=== PATIENT | female | born 1970 ===

== ENCOUNTER 2017-01-16 08:13 | Emergency (ER) | payer OTHER ==
[2017-01-16 08:21] VITALS: BP 139/76; PULSE 75; RESP 20; TEMP 98.3; O2SAT 98
--- NOTE | 2017-01-16 09:01 | C.PDOC ---
History Of Present Illness 46 year old female presents to ED for evaluation of left breast pain and upper back pain for the last 1 month. Patient states that she felt a lump on her breast for the past 1year. Patient reports being seen by a physician in [place], had mammogram done there which showed left breast cyst and lymph node in the axilla. She has not tried any OTC pain medications. Patient denies cough, fever/chills, SOB, chest pain, rashes, falls/injuries. Time Seen by Provider: 01/16/17 08:16 Chief Complaint (Nursing): Abnormal Skin Integrity History Per: Patient History/Exam Limitations: no limitations Onset/Duration Of Symptoms: Persistent Current Symptoms Are (Timing): Still Present Location Of Injury: Left: Chest, Anterior: Chest Quality Of Symptoms: Painful. denies: Itching, Draining Severity: Mild Additional History Per: Patient Past Medical History Reviewed: Historical Data, Nursing Documentation, Vital Signs Vital Signs: Last Vital Signs Temp 98.3 F 01/16/17 08:17 Pulse 75 01/16/17 08:17 Resp 20 01/16/17 08:17 BP 139/76 01/16/17 08:17 Pulse Ox 98 01/16/17 10:08 - Medical History PMH: Bronchitis Family History: States: No Known Family Hx - Social History Hx Alcohol Use: No Hx Substance Use: No - Immunization History Hx Tetanus Toxoid Vaccination: No Hx Influenza Vaccination: No Hx Pneumococcal Vaccination: Yes (15 days ago) Review Of Systems Except As Marked, All Systems Reviewed And Found Negative. Constitutional: Negative for: Fever, Chills Cardiovascular: Positive for: Other (left breast pain). Negative for: Chest Pain, Palpitations Respiratory: Negative for: Cough, Shortness of Breath Gastrointestinal: Negative for: Nausea, Vomiting Musculoskeletal: Positive for: Back Pain (upper). Negative for: Neck Pain Skin: Negative for: Rash Neurological: Negative for: Weakness, Numbness Physical Exam - Physical Exam Appears: Well, Non-toxic, No Acute Distress, Other (obese) Skin: Warm, Dry, No Rash (no rashes on chest/back ) Eye(s): bilateral: Normal Inspection Oral Mucosa: Moist Neck: Supple Lymphatic: Adenopathy (left axillary node ) Chest: Symmetrical, No Deformity, No Tenderness, No Ecchymosis, No Subcutaneous Emphysema, No Other (no palpable mass in the left breast, no erythema, no nipple discharge) Cardiovascular: Rhythm Regular Respiratory: Normal Breath Sounds, No Rales, No Rhonchi, No Wheezing Gastrointestinal/Abdominal: Normal Exam, Bowel Sounds, Soft, No Tenderness Back: No CVA Tenderness, No Vertebral Tenderness, No Paraspinal Tenderness Extremity: Normal ROM, No Deformity Neurological/Psych: Oriented x3 ED Course And Treatment O2 Sat by Pulse Oximetry: 98 (on RA) Pulse Ox Interpretation: Normal - Radiology CXR: Interpreted by Me, Viewed By Me CXR Interpretation: Yes: No Acute Disease. No: Infiltrates, Fracture Progress Note: Patient given PO tylenol, and CXR ordered and reviewed. Reevaluation Time: 09:00 Reassessment Condition: Improved (On reassessment, patient is resting comfortably and states her pain has improved. CXR unremarabkable, and patient has already had mammogram done [place] that showed left breast cyst/axillary LN. Patient given Rx for tylenol and instructed to follow up with medical clinic in 1-2 days. She understands she should return to ED if symptoms worsen.) Disposition Counseled Patient/Family Regarding: Studies Performed, Diagnosis, Need For Followup, Rx Given - Disposition Referrals: [facility] [Outside] Disposition: HOME/ ROUTINE Disposition Time: 09:00 Condition: STABLE Additional Instructions: SEGUIMIENTO EN LA CLNICA EN 1-2 TERAN USE MEDICAMENTOS PARA EL DOLOR AMPARO SEA NECESARIO DEVUELVA A LA MIGNON DE EMERGENCIA SI LOS SNTOMAS EMPEORARAN Prescriptions: Acetaminophen [Tylenol 325mg tab] 650 mg PO Q6 PRN #30 tab PRN Reason: pain/fever Forms: [facility] (Romanian), General Discharge Instructions Print Language: SERBIAN - POA Present On Arrival: None - Clinical Impression Clinical Impression: Breast pain, left - Scribe Statement The provider has reviewed the documentation as recorded by the Jannyibwillem Bauer All medical record entries made by the Scribe were at my direction and personally dictated by me. I have reviewed the chart and agree that the record accurately reflects my personal performance of the history, physical exam, medical decision making, and the department course for this patient. I have also personally directed, reviewed, and agree with the discharge instructions and disposition.
--- NOTE | 2017-01-16 09:02 | RAD ---
HISTORY: left breast pain, left upper back pain COMPARISON: No prior. TECHNIQUE: Chest PA and lateral FINDINGS: LUNGS: No active pulmonary disease. PLEURA: No significant pleural effusion identified. No pneumothorax apparent. CARDIOVASCULAR: Normal. OSSEOUS STRUCTURES: No significant abnormalities. VISUALIZED UPPER ABDOMEN: Normal. OTHER FINDINGS: None. IMPRESSION: No active disease.
== END 2017-01-16 09:11 | disposition home or self-care (01) ==
LOC: C.ER 08:13
DX: N64.4 Mastodynia (principal)

== ENCOUNTER 2017-02-05 19:14 | Emergency (ER) | payer SELFPAY ==
[2017-02-05 19:32] VITALS: RESP 18
[2017-02-05] MEDS ORDERED: Sodium Chloride 0.9% 500 ML IV ONE ×2 (19:54→20:13)
[2017-02-05] MEDS ORDERED: Aluminum Hydroxide/Magnesium Hydroxide Susp (30 mL) PO STA (19:54)
--- NOTE | 2017-02-05 19:57 | C.PDOC ---
History Of Present Illness 46 year old female with a Hx of gastric ulcers and gastritis who presents to the ER with a complaint of nonradiating epigastric pain since 00:00 last night, associated with multiple episodes of vomiting. Patient reports she ate a plantain and a pear approximately 3 hours prior to onset. Patient denies Hx of similar pain, diarrhea, fever, or dysuria. 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 denies: Fever, Chills, Diarrhea, Urinary Symptoms Exacerbating Factors: None Alleviating Factors: None Recent travel outside of the [place]: No Abnormal Vaginal Bleeding: No Past Medical History Reviewed: Historical Data, Nursing Documentation, Vital Signs Vital Signs: Last Vital Signs Temp 97.2 F L 02/05/17 21:21 Pulse 65 02/05/17 21:21 Resp 18 02/05/17 21:21 BP 134/82 02/05/17 21:21 Pulse Ox 99 02/05/17 21:21 - Medical History PMH: Bronchitis Surgical History: Endoscopy Family History: States: Unknown Family Hx - Social History Hx Alcohol Use: No Hx Substance Use: No - Immunization History Hx Tetanus Toxoid Vaccination: No Hx Influenza Vaccination: No Hx Pneumococcal Vaccination: Yes (15 days ago) Review Of Systems Constitutional: Negative for: Fever, Chills Gastrointestinal: Positive for: Vomiting, Abdominal Pain. Negative for: Diarrhea Genitourinary: Negative for: Dysuria Physical Exam - Physical Exam Appears: Non-toxic, No Acute Distress Skin: Normal Color, Warm, Dry Head: Atraumatic, Normacephalic Eye(s): bilateral: Normal Inspection, EOMI Oral Mucosa: Moist Neck: Normal, Supple Chest: Symmetrical, No Tenderness Cardiovascular: Rhythm Regular (S1/S2 within normal limits) Respiratory: Normal Breath Sounds, No Rales, No Rhonchi, No Wheezing Gastrointestinal/Abdominal: Soft, No Tenderness, Distention (Mildly) Neurological/Psych: Oriented x3, Normal Speech, Normal Cognition ED Course And Treatment - Laboratory Results Result Diagrams: 02/05/17 20:01 10/24/17 20:01 O2 Sat by Pulse Oximetry: 100 (Room air) Pulse Ox Interpretation: Normal Medical Decision Making Medical Decision Making: Impression: Gastritis vs GERD vs Biliary Colic Plan: * Maalox * Pepcid * Viscous lidocaine * Zofran * IV fluids * Blood work * Urinalysis Disposition - Disposition Referrals: [facility] [Outside] Disposition: HOME/ ROUTINE Disposition Time: 21:05 Condition: FAIR Additional Instructions: take famotidine as prescribed Prescriptions: Famotidine [Pepcid] 40 mg PO DAILY #14 tablet Forms: [employer] (British), Work Excuse - Clinical Impression Clinical Impression: Epigastric abdominal pain - Scribe Statement The provider has reviewed the documentation as recorded by the Scribe Kurtis Morgan All medical record entries made by the Scribe were at my direction and personally dictated by me. I have reviewed the chart and agree that the record accurately reflects my personal performance of the history, physical exam, medical decision making, and the department course for this patient. I have also personally directed, reviewed, and agree with the discharge instructions and disposition.
[2017-02-05] MEDS ORDERED: Aluminum Hydroxide/Magnesium Hydroxide Susp (30 mL) ONE (20:02)
[2017-02-05] MEDS ORDERED: Sodium Chloride 0.9% 0 ML ONE (20:02)
[2017-02-05 20:04] LABS: BASO # 0.1 K/uL (0.0-0.2); MONO # 0.4 K/uL (0.0-0.8)
[2017-02-05 20:06] LABS: EOS % 0.1 % (0.0-4.0); HEMATOCRIT 44.1 % (34.0-47.0); LYMPH # 1.8 K/uL (1.0-4.3); LYMPH % 19.6 % (20.0-40.0); MEAN CELL VOLUME 89.3 fL (81.0-99.0); MEAN CORPUSCULAR HEMOGLOBIN 30.4 pg (27.0-31.0); MEAN PLATELET VOLUME 9.7 fL (7.2-11.7); MONO % 4.1 % (0.0-10.0); NRBC % 0.1 % (0.0-2.0); RED CELL DISTRIBUTION WIDTH 13.7 % (11.5-14.5); WHITE BLOOD COUNT 9.1 K/uL (4.8-10.8)
[2017-02-05 20:16] LABS: CHLORIDE 98 mmol/L (98-107)
[2017-02-05 20:17] LABS: POTASSIUM 4.1 mmol/L (3.6-5.2); SODIUM 135 mmol/L (132-148)
[2017-02-05 20:19] LABS: BILIRUBIN,TOTAL 0.7 mg/dL (0.2-1.3); GFR AFRICAN-AMERICAN > 60
[2017-02-05 20:20] LABS: ALB/GLOB RATIO 1.5 (1.0-2.1); ALKALINE PHOSPHATASE 70 U/L (38-126); ALT/SGPT 66 U/L (9-52); AST/SGOT 37 U/L (14-36); BLOOD UREA NITROGEN 11 mg/dL (7-17); CALCIUM 10.1 mg/dl (8.6-10.4); CARBON DIOXIDE 24 mmol/L (22-30); GLUCOSE,RANDOM 108 mg/dL (65-105); TOTAL PROTEIN 7.8 g/dL (6.3-8.3)
[2017-02-05 21:23] VITALS: BP 134/82; PULSE 65; TEMP 97.2
[2017-02-05 22:26] VITALS: O2SAT 100
== END 2017-02-05 21:22 | disposition home or self-care (01) ==
LOC: C.ER 19:14
DX: R10.13 Epigastric pain (principal)
CPT/HCPCS: 80053; 83690; 85025; 96374; 96375; 99284; J2405; J7040

== ENCOUNTER 2018-07-03 08:09 | Emergency (ER) | payer OTHER, SELFPAY ==
[2018-07-03 09:16] LABS: HCG,QUALITATIVE URINE NEGATIVE (NEGATIVE)
[2018-07-03 09:19] LABS: SQUAMOUS EPITHIAL 4 /hpf (0-5); URINE BACTERIA RARE (<OCC); URINE BILIRUBIN NEGATIVE (NEGATIVE); URINE BLOOD NEGATIVE (NEGATIVE); URINE CLARITY Clear (Clear); URINE COLOR Yellow (YELLOW); URINE GLUCOSE (UA) NORMAL (Normal); URINE LEUKOCYTE ESTERASE NEG Leu/uL (Negative); URINE PROTEIN NEGATIVE (NEGATIVE); URINE UROBILINOGEN NORMAL mg/dL (0.2-1.0)
[2018-07-03] MEDS ORDERED: Sodium Chloride 0.9% 1,000 ML IV STA (10:35)
[2018-07-03 10:53] LABS: BASO % 0.6 % (0.0-2.0); EOS # 0.1 K/uL (0.0-0.7); EOS % 2.9 % (0.0-4.0); HEMOGLOBIN 13.2 g/dL (11.0-16.0); LYMPH # 1.6 K/uL (1.0-4.3); LYMPH % 36.6 % (20.0-40.0); MEAN CELL VOLUME 91.7 fL (81.0-99.0); MEAN CORPUSCULAR HEMOGLOBIN 30.4 pg (27.0-31.0); MEAN CORPUSCULAR HGB CONC 33.1 g/dL (33.0-37.0); MEAN PLATELET VOLUME 9.9 fL (7.2-11.7); MONO # 0.3 K/uL (0.0-0.8); NEUT # 2.3 K/uL (1.8-7.0); NEUT % 52.9 % (50.0-75.0); NRBC % 0.1 % (0.0-2.0); RBC 4.36 Mil/uL (3.80-5.20); RED CELL DISTRIBUTION WIDTH 12.9 % (11.5-14.5); WHITE BLOOD COUNT 4.4 K/uL (4.8-10.8)
[2018-07-03 11:06] LABS: ALB/GLOB RATIO 1.5 (1.0-2.1); ALBUMIN 4.3 g/dL (3.5-5.0); ALT/SGPT 14 U/L (9-52); AST/SGOT 25 U/L (14-36); BLOOD UREA NITROGEN 15 mg/dL (7-17); CALCIUM 9.4 mg/dl (8.6-10.4); GFR NON-AFRICAN AMERICAN > 60; LIPASE 81 U/L (23-300)
[2018-07-03] MEDS ORDERED: Sodium Chloride 0.9% 1,000 ML ONE (11:09)
--- NOTE | 2018-07-03 11:51 | US ---
Date of service: 07/03/2018 HISTORY: RUQ and epigastric abd pain COMPARISON: None. TECHNIQUE: Sonographic evaluation of the right upper quadrant of the abdomen. FINDINGS: LIVER: Measures 18.2 cm in length. Diffusely increased echogenicity of the liver parenchyma. Consistent with fatty infiltration. Smooth contour. No mass. No biliary ductal dilatation. Normal hepatopetal portal venous flow. GALLBLADDER: Unremarkable. No gallstones. COMMON BILE DUCT: Measures 2 mm. No stones. No dilatation. PANCREAS: Unremarkable as visualized. No mass. No ductal dilatation. RIGHT KIDNEY: Measures 11.3 cm in length. Normal echogenicity. No calculus, mass, or hydronephrosis. AORTA: No aneurysmal dilatation. IVC: Unremarkable. OTHER FINDINGS: None . IMPRESSION: Fatty liver. No evidence of cholelithiasis or cholecystitis.
--- NOTE | 2018-07-03 14:47 | C.PDOC ---
History Of Present Illness 48 year old female presents to the ED with daughter for evaluation of epigastric abdominal pain which began this morning. As per daughter, patient has a history of gastritis and her pain began after eating "rough" this morning. Patient denies fever, chills, nausea, vomiting, diarrhea. Time Seen by Provider: 07/03/18 08:20 Chief Complaint (Nursing): Abdominal Pain History Per: Patient, Family History/Exam Limitations: no limitations Onset/Duration Of Symptoms: Hrs Current Symptoms Are (Timing): Still Present Location Of Pain/Discomfort: Epigastric Radiation Of Pain To:: None Quality Of Discomfort: "Pain" Associated Symptoms: denies: Fever, Chills, Nausea, Vomiting, Diarrhea Additional History Per: Patient, Family Abnormal Vaginal Bleeding: No Past Medical History Reviewed: Historical Data, Nursing Documentation, Vital Signs Vital Signs: Last Vital Signs Temp 98 F 07/03/18 12:48 Pulse 60 07/03/18 12:48 Resp 20 07/03/18 12:48 BP 125/80 07/03/18 12:48 Pulse Ox 98 07/03/18 12:48 - Medical History PMH: Bronchitis Surgical History: Endoscopy Family History: States: Unknown Family Hx - Social History Hx Alcohol Use: No Hx Substance Use: No - Immunization History Hx Tetanus Toxoid Vaccination: No Hx Influenza Vaccination: No Hx Pneumococcal Vaccination: Yes (15 days ago) Review Of Systems Constitutional: Negative for: Fever, Chills Gastrointestinal: Positive for: Abdominal Pain (epigastric ). Negative for: Nausea, Vomiting, Diarrhea Physical Exam - Physical Exam Appears: Non-toxic, No Acute Distress Skin: Normal Color, Warm, Dry Head: Atraumatic, Normacephalic Eye(s): bilateral: Normal Inspection Oral Mucosa: Moist Neck: Supple Chest: Symmetrical, No Deformity, No Tenderness Cardiovascular: Rhythm Regular, No Murmur Respiratory: Normal Breath Sounds, No Rales, No Rhonchi, No Wheezing Gastrointestinal/Abdominal: Soft, Tenderness (mild to epigastric and right upper quadrant regions ), No Guarding, No Rebound Extremity: Normal ROM, Capillary Refill (less than 2 seconds ) Neurological/Psych: Oriented x3, Normal Speech, Normal Cognition ED Course And Treatment - Laboratory Results Result Diagrams: 07/03/18 10:47 07/03/18 10:47 Lab Results: Total Bilirubin 0.4 mg/dL (0.2-1.3) 07/03/18 10:47 AST 25 U/L (14-36) 07/03/18 10:47 ALT 14 U/L (9-52) 07/03/18 10:47 Alkaline Phosphatase 68 U/L (38-126) 07/03/18 10:47 Total Protein 7.1 g/dL (6.3-8.3) 07/03/18 10:47 Albumin 4.3 g/dL (3.5-5.0) 07/03/18 10:47 Globulin 2.8 gm/dL (2.2-3.9) 07/03/18 10:47 Albumin/Globulin Ratio 1.5 (1.0-2.1) 07/03/18 10:47 Lipase 81 U/L (23-300) 07/03/18 10:47 Urine Color Yellow (YELLOW) 07/03/18 09:07 Urine Clarity Clear (Clear) 07/03/18 09:07 Urine pH 6.0 (5.0-8.0) 07/03/18 09:07 Ur Specific [place] 1.021 (1.003-1.030) 07/03/18 09:07 Urine Protein Negative mg/dL (NEGATIVE) 07/03/18 09:07 Urine Glucose (UA) Normal mg/dL (Normal) 07/03/18 09:07 Urine Ketones Negative mg/dL (NEGATIVE) 07/03/18 09:07 Urine Blood Negative (NEGATIVE) 07/03/18 09:07 Urine Nitrate Negative (NEGATIVE) 07/03/18 09:07 Urine Bilirubin Negative (NEGATIVE) 07/03/18 09:07 Urine Urobilinogen Normal mg/dL (0.2-1.0) 07/03/18 09:07 Ur Leukocyte Esterase Neg Db/uL (Negative) 07/03/18 09:07 Urine WBC (Auto) < 1 /hpf (0-5) 07/03/18 09:07 Urine RBC (Auto) 1 /hpf (0-3) 07/03/18 09:07 Ur Squamous Epith Cells 4 /hpf (0-5) 07/03/18 09:07 Urine Bacteria Rare (<OCC) 07/03/18 09:07 Urine HCG, Qual Negative (NEGATIVE) 07/03/18 09:07 Urine HCG, Qual Negative (NEGATIVE) 07/03/18 09:07 O2 Sat by Pulse Oximetry: 98 (on RA ) Pulse Ox Interpretation: Normal - CT Scan/US Abdomen US Other Rad Studies (CT/US): Read By Radiologist, Radiology Report Reviewed CT/US Interpretation: Date of service: 07/03/2018. HISTORY: RUQ and epigastric abd pain. COMPARISON: None. TECHNIQUE: Sonographic evaluation of the right upper quadrant of the abdomen. FINDINGS: LIVER: Measures 18.2 cm in length. Diffusely increased echogenicity of the liver parenchyma. Consistent with fatty infiltration. Smooth contour. No mass. No biliary ductal dilatation. Normal hepatopetal portal venous flow. GALLBLADDER: Unremarkable. No gallstones. COMMON BILE DUCT: Measures 2 mm. No stones. No dilatation. PANCREAS: Unremarkable as visualized. No mass. No ductal dilatation. RIGHT KIDNEY: Measures 11.3 cm in length. Normal echogenicity. No calculus, mass, or hydronephrosis. AORTA: No aneurysmal dilatation. IVC: Unremarkable. OTHER FINDINGS: None . IMPRESSION: Fatty liver. No evidence of cholelithiasis or cholecystitis. Progress Note: Bloodwork, urinalysis, US Abdomen ordered and reviewed. Results are unremarkable. Protonix IVP, Zofran IVP and IV Fluids given. On reassessment, patient is resting comfortably, showing no signs of distress, is tolerating PO intake, and reports an improvement in her pain. Patient is stable for discharge. She is advised to follow up with clinic within 1-2 days for further evaluation and is given GI consult recommendation. Reassessment Condition: Improved Disposition - Disposition Disposition: HOME/ ROUTINE Disposition Time: 14:44 Condition: IMPROVED Additional Instructions: Follow up with PMD within 1-2 days. REturn to ED if feel worse. 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 - Scribe Statement The provider has reviewed the documentation as recorded by the Scribe (Karina Bauer) All medical record entries made by the Scribe were at my direction and personally dictated by me. I have reviewed the chart and agree that the record accurately reflects my personal performance of the history, physical exam, medical decision making, and the department course for this patient. I have also personally directed, reviewed, and agree with the discharge instructions and disposition.
[2018-07-03 14:58] VITALS: BP 130/75; PULSE 61; RESP 18; TEMP 98.7
[2018-07-03 18:15] VITALS: O2SAT 98
== END 2018-07-03 15:02 | disposition home or self-care (01) ==
LOC: C.ER 08:09
DX: R10.13 Epigastric pain (principal)
CPT/HCPCS: 76705; 80053; 81001; 83690; 84703; 85025; 96361; 96374; 96375; 99285; C9113; J2405; J7030